=== PATIENT | female | born 2000 | race Caucasian/White ===

== ENCOUNTER 2023-09-26 20:52 | Outpatient (CLI) | payer OTHER ==
--- NOTE | 2023-09-27 14:49 | Ultrasound Report ---
PROCEDURE: Pelvic Complete INDICATIONS: PELVIC PAIN TECHNIQUE: Real-time transabdominal scanning was performed of the pelvic organs, with image documentation. The patient declined to proceed with transvaginal scanning. COMPARISON: None. FINDINGS: Uterus: Uterus is anteverted and normal in size at 4.1 x 5.0 x 8.3 cm. The myometrium is mildly het erogeneous. The endometrium measures 4.9 mm in combined thickness. No uterine fibroids found. Ovaries: The right ovary measures 1.9 x 3.2 x 3.3 cm, with a calculated ovarian volume of 10.5 cc. The left ovary measures 2.1 x 2.1 x 3.2 cm, with a calculated ovarian volume of 7.4 cc. The ovaries have a normal sonographic appearance. Less than 12 follicles can be seen in each ovary. No adnexal masses are seen. No cystic lesions measuring greater than 3 cm. A small less than 2 cm follicular cys t is incidentally noted at the left ovary. No dominant cyst found. Other: No free pelvic fluid. IMPRESSION: No uterine fibroid, no adnexal cystic or solid mass found. Normal endometrial lining thickness. At th e left ovary a dominant cyst is not found and there is a follicular cyst measuring less than 2 cm, re quiring no follow-up. Reviewed by: Roger Ch MD on 09/27/2023 2:48 PM PDT Approved by: Roger Ch MD on 09/27/2023 2:48 PM PDT Station ID: [id number]
== END 2023-09-26 20:53 | disposition home or self-care (01) ==
LOC: DI 20:52
PROVIDERS: ATTEND Obstetrics & Gynecology
DX: R10.2 Pelvic and perineal pain (principal); N83.202 Unspecified ovarian cyst, left side